=== PATIENT | male | born 2000 | race Two or more races ===

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

== ENCOUNTER 2020-01-13 09:28 | Emergency (ER) | payer BC, MEDICAID ==
[~2020-01-13] VITALS: Ht 180.3 cm; Wt 75.1 kg
[~2020-01-13 09:28] MED LIST changes: -WARF5TAB PO; +WARF5TAB2 PO
[2020-01-13 09:34] VITALS: BP 122/75
== END 2020-01-13 11:25 | disposition home or self-care (01) ==
LOC: ED 10:03
DX: Z20.2 Contact with and (suspected) exposure to infections with a predominantly sexual mode of transmission (principal)
CPT/HCPCS: 99282

== ENCOUNTER 2020-04-23 23:05 | Inpatient (IN) | payer BC, MEDICAID ==
[~2020-04-23] VITALS: Ht 177.8 cm; Wt 69.2 kg
[2020-04-23] MEDS ORDERED: MORPHINE SULFATE 4 MG/ML, 1ML ONE (23:44)
[2020-04-23] MEDS ORDERED: DIPHENHYDRAMINE 50 MG/ML, 1ML ONE (23:44)
[2020-04-23] MEDS ORDERED: OMNIPAQUE 350 MG/ML, 100ML BOTTLE ONE (23:50)
--- NOTE | 2020-04-23 23:51 | NUR ---
18 GAUGE IV STARTED LEFT FA, BLOOD DRAWN AND SENT TO LAB,PATIENT MEDICATED PER emAR.
[2020-04-24] MEDS ORDERED: DIPHENHYDRAMINE 50 MG/ML, 1ML IVPush ONE
[2020-04-24] MEDS ORDERED: MORPHINE SULFATE 4 MG/ML, 1ML IVPush ONE
--- NOTE | 2020-04-24 00:15 | NUR ---
Per mother, patient was admitted to [facility] for blood clots. He was discharged x1 week ago. Since he was d/c, patient has continued to have abd pain but today he is having trouble breathing along with CP. Patient RA sat was in the 80s; he is on 6lpm O2 via NC to maintain O2 sats. Patient was medicated by assist RN. Patient now resting on gurney with no complaints. Mother at bedside.
[2020-04-24 00:39] LABS: BASOPHILS % (AUTO) 0 % (0-1); EOSINOPHILS % (AUTO) 1 % (1-7); LYMPHOCYTES % (AUTO) 16 % (22-44); MEAN CORPUSCULAR HEMOGLOBIN 23.5 pg (27.5-34.5); MEAN CORPUSCULAR HGB CONC 31.2 g/dL (33.2-36.2); MEAN PLATELET VOLUME 10.7 fL (7.4-10.4); MONOCYTES % (AUTO) 5 % (2-9); NEUTROPHILS % (AUTO) 79 % (42-75); PLATELET COUNT 60 x10^3/uL (130-400); RED BLOOD COUNT 4.79 x10^6/uL (4.38-5.82); RED CELL DISTRIBUTION WIDTH 22.5 % (9.4-14.8)
[2020-04-24 00:51] LABS: ALANINE AMINOTRANSFERASE 30 U/L (12-78); ALBUMIN 3.7 g/dL (3.4-5.0); ANION GAP 8 mmol/L (5-15); CHLORIDE 101 mmol/L (98-107)
[2020-04-24 00:56] LABS: ALKALINE PHOSPHATASE 126 U/L (45-117); BILIRUBIN,TOTAL 0.9 mg/dL (0.2-1.0); TROPONIN I < 0.015 ng/mL (0.000-0.045)
[2020-04-24 01:08] LABS: MD MORPH REVIEW ONLY
[2020-04-24 01:09] LABS: ANISOCYTOSIS 2+; MICROCYTOSIS 1+
[2020-04-24 01:10] LABS: HYPOCHROMIA 1+; POLYCHROMASIA 1+
[2020-04-24 01:11] LABS: OVALOCYTES 1+
[2020-04-24 01:12] LABS: <PLATELET ESTIMATE> DECREASED; GIANT PLATELETS 1+; LARGE PLATELETS 1+; TEAR DROPS 1+
[2020-04-24 01:23] LABS: PROTHROMBIN TIME 55.8 Seconds (9.6-11.5)
[2020-04-24 01:24] LABS: INTERNATIONAL NORMALIZED RATIO 5.35 (0.93-1.1)
[2020-04-24] MEDS ORDERED: MORPHINE SULFATE 4 MG/ML, 1ML ONE ×3 (02:01→09:19)
--- NOTE | 2020-04-24 02:14 | NUR ---
Medicated patient per may. COVID swab collected and walked to lab.
[2020-04-24] MEDS ORDERED: FURO40TA6 PO (02:18)
[2020-04-24] MEDS ORDERED: ASCO500C2 PO (02:18)
[2020-04-24] MEDS ORDERED: SUCR1TAB PO (02:18)
[2020-04-24] MEDS ORDERED: RIOC2.5T PO (02:18)
[2020-04-24] MEDS ORDERED: CEFTRIAXONE PMX 1GM/50ML 50 ML ONE (02:28)
[2020-04-24] MEDS ORDERED: CEFTRIAXONE PMX 1GM/50ML 50 ML IVPB ONE (02:30)
[2020-04-24] MEDS ORDERED: AZITHROMYCIN 500 MG in SODIUM CHLORIDE 0.9% 250 ML IVPB ONE (02:30)
[2020-04-24] MEDS ORDERED: MORPHINE SULFATE 4 MG/ML, 1ML IVPush PRN (02:30)
[2020-04-24 02:32] LABS: MICROSCOPIC INDICATED
[2020-04-24 02:45] LABS: AMPHETAMINE SCREEN, URINE Negative (Negative); BARBITURATE SCREEN, URINE Negative (Negative); BENZODIAZEPINE SCREEN, URINE Negative (Negative); CANNABINOID SCREEN, URINE Positive (Negative); COCAINE SCREEN, URINE Negative (Negative); METHADONE SCREEN, URINE Negative (Negative); OPIATE SCREEN, URINE Positive (Negative)
--- NOTE | 2020-04-24 03:25 | NUR ---
Patient resting in gurney with no complaints or needs at this time. Respirations even and unlabored.
[2020-04-24] MEDS ORDERED: PROMETHAZINE 25 MG/ML, 1ML IM PRN (04:30)
[2020-04-24] MEDS ORDERED: MELATONIN 5 MG TABLET PO PRN (04:30)
[2020-04-24] MEDS ORDERED: BISACODYL 10 MG SUPP PR PRN (04:30)
[2020-04-24] MEDS ORDERED: POTASSIUM CHLORIDE 40 MEQ in SODIUM CHLORIDE 0.9% 500 ML IV ONE (04:30)
[2020-04-24] MEDS ORDERED: POLYETHYLENE GLYCOL 17 GM PACKET PO PRN (04:30)
[2020-04-24] MEDS ORDERED: ACETAMINOPHEN 325 MG TABLET PO PRN (04:30)
--- NOTE | 2020-04-24 05:00 | NUR ---
Provided blankets. Patient resting with no complaints or needs at this time.
--- NOTE | 2020-04-24 05:02 | NUR ---
Hospital bed requested.
[2020-04-24] MEDS ORDERED: OMEPRAZOLE 20 MG CAPSULE.DR ONE (05:24)
[2020-04-24] MEDS: OMEPRAZOLE 20 MG CAPSULE.DR PO SCH ×2 (05:45→17:05)
[2020-04-24] MEDS: SUCRALFATE 1 GM TABLET PO SCH ×4 (05:45→21:00)
[2020-04-24] MEDS: morphine SULFATE 10 MG/ML, 1ML IV PRN ×3 (05:47→21:00)
--- NOTE | 2020-04-24 05:47 | NUR ---
Patient transferred to a hospital bed. Patient states he has pain. Medicated patient per may.
--- NOTE | 2020-04-24 06:17 | NUR ---
Meal tray ordered.
--- NOTE | 2020-04-24 06:53 | NUR ---
Report to DUSTIN Bustamante. Patient care transferred.
--- NOTE | 2020-04-24 07:03 | NUR ---
pt sleeping, nad observed, call light and belongings within reach
[2020-04-24] MEDS ORDERED: FUROSEMIDE 20 MG/2 ML ONE (08:58)
[2020-04-24] MEDS ORDERED: SENNA/DOCUSATE TABLET ONE (08:58)
[2020-04-24] MEDS: SENNA/DOCUSATE TABLET PO SCH (09:06)
[2020-04-24] MEDS: FUROSEMIDE 20 MG/2 ML IV SCH ×2 (09:06→17:06)
[2020-04-24] MEDS: (Riociguat** (Adempas**) 2.5 MG) PO SCH ×3 (09:08→20:59)
--- NOTE | 2020-04-24 09:15 | NUR ---
MEAL TRAY PROVIDED. PT DENIES FURTHER NEEDS
[2020-04-24 09:28] LABS: INTERNATIONAL NORMALIZED RATIO 5.13 (0.93-1.1); PROTHROMBIN TIME 53.5 Seconds (9.6-11.5)
--- NOTE | 2020-04-24 13:26 | NUR ---
pt ate approx 75% of breakfast tray
[2020-04-24 15:06] VITALS: BP 113/77
[2020-04-24] MEDS: OXYcodone IR 5MG TABLET PO PRN ×2 (15:18→23:39)
[2020-04-24] MEDS ORDERED: CEFTRIAXONE PMX 1GM/50ML 50 ML IV ONE (15:30)
[2020-04-24 20:51] VITALS: BP 109/70
[2020-04-24] MEDS: DOXYCYCLINE 100MG TABLET PO SCH (20:59)
[2020-04-24 23:41] LABS: OCCULT BLOOD NEGATIVE (NEGATIVE)
[2020-04-25 01:20] VITALS: BP 101/60
[2020-04-25] MEDS: morphine SULFATE 10 MG/ML, 1ML IV PRN ×3 (02:33→16:25)
[2020-04-25] MEDS: OMEPRAZOLE 20 MG CAPSULE.DR PO SCH ×2 (06:15→16:24)
[2020-04-25] MEDS: OXYcodone IR 5MG TABLET PO PRN ×3 (06:15→20:29)
[2020-04-25 06:16] LABS: BASOPHILS % (AUTO) 1 % (0-1); EOSINOPHILS % (AUTO) 1 % (1-7); LYMPHOCYTES % (AUTO) 19 % (22-44); MEAN CORPUSCULAR HEMOGLOBIN 23.8 pg (27.5-34.5); MEAN CORPUSCULAR HGB CONC 31.6 g/dL (33.2-36.2); MEAN PLATELET VOLUME 9.9 fL (7.4-10.4); MONOCYTES % (AUTO) 5 % (2-9); NEUTROPHILS % (AUTO) 74 % (42-75); PLATELET COUNT 65 x10^3/uL (130-400); PROTHROMBIN TIME 41.8 Seconds (9.6-11.5); RED BLOOD COUNT 4.32 x10^6/uL (4.38-5.82); RED CELL DISTRIBUTION WIDTH 23.1 % (9.4-14.8)
[2020-04-25 06:25] LABS: ANION GAP 5 mmol/L (5-15); CALCIUM 8.8 mg/dL (8.5-10.1); CHLORIDE 107 mmol/L (98-107)
[2020-04-25 06:27] LABS: CREATININE 0.79 mg/dL (0.7-1.3)
[2020-04-25 06:44] LABS: MD SCAN
[2020-04-25 06:55] VITALS: BP 121/76
[2020-04-25] MEDS: FUROSEMIDE 20 MG/2 ML IV SCH ×2 (10:09→16:25)
[2020-04-25] MEDS: SUCRALFATE 1 GM TABLET PO SCH ×3 (10:09→20:27)
[2020-04-25] MEDS: CEFTRIAXONE PMX 2GM/50ML 50 ML IVPB SCH (10:09)
[2020-04-25] MEDS: DOXYCYCLINE 100MG TABLET PO SCH ×2 (10:09→20:28)
[2020-04-25] MEDS: SENNA/DOCUSATE TABLET PO SCH (10:10)
[2020-04-25] MEDS: (Riociguat** (Adempas**) 2.5 MG) PO SCH ×3 (10:15→20:27)
[2020-04-25 11:35] VITALS: BP 116/75
[2020-04-25] MEDS ORDERED: WARFARIN 3 MG TABLET PO-COUM ONE (18:00)
[2020-04-25 18:55] VITALS: BP 106/72
[2020-04-26] MEDS: morphine SULFATE 10 MG/ML, 1ML IV PRN ×4 (00:06→22:11)
[2020-04-26 00:47] VITALS: BP 121/77
[2020-04-26] MEDS: OMEPRAZOLE 20 MG CAPSULE.DR PO SCH ×2 (05:40→15:29)
[2020-04-26 06:06] LABS: BASOPHILS % (AUTO) 1 % (0-1); EOSINOPHILS % (AUTO) 1 % (1-7); LYMPHOCYTES % (AUTO) 21 % (22-44); MEAN CORPUSCULAR HEMOGLOBIN 23.7 pg (27.5-34.5); MEAN CORPUSCULAR HGB CONC 31.6 g/dL (33.2-36.2); MEAN PLATELET VOLUME 9.1 fL (7.4-10.4); MONOCYTES % (AUTO) 5 % (2-9); NEUTROPHILS % (AUTO) 71 % (42-75); PLATELET COUNT 68 x10^3/uL (130-400); RED BLOOD COUNT 4.38 x10^6/uL (4.38-5.82)
[2020-04-26 06:09] LABS: CHLORIDE 105 mmol/L (98-107)
[2020-04-26 06:16] LABS: ANION GAP 6 mmol/L (5-15); CALCIUM 9.1 mg/dL (8.5-10.1); CREATININE 0.89 mg/dL (0.7-1.3); INTERNATIONAL NORMALIZED RATIO 3.56 (0.93-1.1); PROTHROMBIN TIME 37.3 Seconds (9.6-11.5)
[2020-04-26 06:32] VITALS: BP 113/74
[2020-04-26 06:39] LABS: MD SCAN
[2020-04-26] MEDS: (Riociguat** (Adempas**) 2.5 MG) PO SCH ×3 (09:00→22:17)
[2020-04-26] MEDS: SUCRALFATE 1 GM TABLET PO SCH ×3 (09:44→22:10)
[2020-04-26] MEDS: DOXYCYCLINE 100MG TABLET PO SCH (09:44)
[2020-04-26] MEDS: SENNA/DOCUSATE TABLET PO SCH (09:44)
[2020-04-26] MEDS: FUROSEMIDE 20 MG/2 ML IV SCH (09:45)
[2020-04-26] MEDS: CEFTRIAXONE PMX 2GM/50ML 50 ML IVPB SCH (09:45)
[2020-04-26] MEDS: OXYcodone IR 5MG TABLET PO PRN ×2 (11:14→15:28)
[2020-04-26 11:18] VITALS: BP 117/74
[2020-04-26 13:20] LABS: O2 FLOW 4 L/min
[2020-04-26] MEDS: FUROSEMIDE 40 MG/4 ML IV SCH (17:10)
[2020-04-26] MEDS ORDERED: WARFARIN 2 MG TABLET PO-COUM ONE (18:00)
[2020-04-26] MEDS: PIPERACILLIN/TAZO/PMX 3.375GM 50 ML IV SCH (18:26)
[2020-04-26 22:43] VITALS: BP 106/65
[2020-04-27] MEDS: PIPERACILLIN/TAZO/PMX 3.375GM 50 ML IV SCH ×2 (01:38→09:04)
[2020-04-27] MEDS: OMEPRAZOLE 20 MG CAPSULE.DR PO SCH ×2 (05:34→16:26)
[2020-04-27 05:35] VITALS: BP 95/59
[2020-04-27 05:56] LABS: INTERNATIONAL NORMALIZED RATIO 3.7 (0.93-1.1); PROTHROMBIN TIME 38.6 Seconds (9.6-11.5)
[2020-04-27 05:58] LABS: ANION GAP 7 mmol/L (5-15); CALCIUM 9.1 mg/dL (8.5-10.1); CHLORIDE 103 mmol/L (98-107)
[2020-04-27 05:59] LABS: CREATININE 0.95 mg/dL (0.7-1.3)
[2020-04-27 07:41] VITALS: BP 101/62
[2020-04-27] MEDS: FUROSEMIDE 40 MG/4 ML IV SCH ×2 (08:08→16:25)
[2020-04-27] MEDS: (Riociguat** (Adempas**) 2.5 MG) PO SCH ×3 (09:00→20:30)
[2020-04-27] MEDS: SENNA/DOCUSATE TABLET PO SCH (09:04)
[2020-04-27] MEDS: SUCRALFATE 1 GM TABLET PO SCH ×3 (09:04→20:27)
[2020-04-27] MEDS ORDERED: MORPHINE SULFATE 4 MG/ML, 1ML ONE ×3 (09:15→17:56)
[2020-04-27] MEDS: morphine SULFATE 10 MG/ML, 1ML IV PRN ×4 (09:17→21:08)
[2020-04-27 12:13] VITALS: BP 103/65
[2020-04-27] MEDS: OXYcodone IR 5MG TABLET PO PRN ×2 (12:48→20:27)
[2020-04-27] MEDS ORDERED: WARFARIN 3 MG TABLET PO-COUM ONE (18:00)
[2020-04-27] MEDS ORDERED: DOXY100T PO (19:07)
[2020-04-27] MEDS ORDERED: AMOX1TAB12 PO (19:07)
[2020-04-27 19:45] VITALS: BP 99/62
[2020-04-27] MEDS: AMOXICILLIN/CLAV 875-125MG TABLET PO SCH (20:27)
[2020-04-27] MEDS: DOXYCYCLINE 100MG TABLET PO SCH (20:27)
[2020-04-28] MEDS: morphine SULFATE 10 MG/ML, 1ML IV PRN ×2 (01:56→05:48)
[2020-04-28 05:37] LABS: INTERNATIONAL NORMALIZED RATIO 3.13 (0.93-1.1); PROTHROMBIN TIME 32.7 Seconds (9.6-11.5)
[2020-04-28 05:47] LABS: CHLORIDE 102 mmol/L (98-107)
[2020-04-28] MEDS: OMEPRAZOLE 20 MG CAPSULE.DR PO SCH (05:47)
[2020-04-28 05:57] LABS: ANION GAP 7 mmol/L (5-15); CALCIUM 9.5 mg/dL (8.5-10.1); CREATININE 0.94 mg/dL (0.7-1.3)
[2020-04-28 07:18] VITALS: BP 107/67
[2020-04-28 08:54] LABS: O2 FLOW 5 L/min
[2020-04-28] MEDS: (Riociguat** (Adempas**) 2.5 MG) PO SCH (09:00)
[2020-04-28] MEDS ORDERED: FUROSEMIDE 40 MG TABLET PO SCH (09:00)
[2020-04-28] MEDS: AMOXICILLIN/CLAV 875-125MG TABLET PO SCH (09:26)
[2020-04-28] MEDS: DOXYCYCLINE 100MG TABLET PO SCH (09:26)
[2020-04-28] MEDS: SENNA/DOCUSATE TABLET PO SCH (09:26)
[2020-04-28] MEDS: SUCRALFATE 1 GM TABLET PO SCH (09:26)
[2020-04-28] MEDS: OXYcodone IR 5MG TABLET PO PRN ×2 (10:21→15:03)
[2020-04-28] MEDS ORDERED: HYDR-3245 PO (12:13)
[2020-04-28 12:53] VITALS: BP 111/68
[2020-04-28] MEDS ORDERED: WARFARIN 5 MG TABLET PO-COUM ONE (18:00)
== END 2020-04-28 18:01 | disposition home or self-care (01) | DRG 241 ==
LOC: ED 23:35 → EDIP 04-24 03:23 → 4WST 04-24 14:54 → 5SO 04-26 18:14
PROVIDERS: ADMIT Family Medicine; ATTEND Internal Medicine
DX: K29.60 Other gastritis without bleeding (principal); K59.03 Drug induced constipation; I27.29 Other secondary pulmonary hypertension; R18.8 Other ascites; J96.21 Acute and chronic respiratory failure with hypoxia; J15.9 Unspecified bacterial pneumonia; I85.00 Esophageal varices without bleeding; I50.9 Heart failure, unspecified; I27.82 Chronic pulmonary embolism; I27.81 Cor pulmonale (chronic); I26.99 Other pulmonary embolism without acute cor pulmonale; I11.0 Hypertensive heart disease with heart failure; Z20.822 Contact with and (suspected) exposure to COVID-19; I07.1 Rheumatic tricuspid insufficiency; F12.90 Cannabis use, unspecified, uncomplicated; T40.605A Adverse effect of unspecified narcotics, initial encounter; E87.5 Hyperkalemia; D69.59 Other secondary thrombocytopenia; D68.59 Other primary thrombophilia; D53.9 Nutritional anemia, unspecified; Z87.891 Personal history of nicotine dependence; Z86.718 Personal history of other venous thrombosis and embolism; Z86.2 Personal history of diseases of the blood and blood-forming organs and certain disorders involving the immune mechanism; Z79.01 Long term (current) use of anticoagulants; I25.2 Old myocardial infarction; Z91.19 Patient's noncompliance with other medical treatment and regimen; Y92.89 Other specified places as the place of occurrence of the external cause
CPT/HCPCS: 36415; 36600; 71045; 71275; 74177; 80048; 80053; 80307; 81001; 82272; 82803; 83605; 83690; 83735; 83880; 84145; 84484; 85025; 85610; 85730; 87040; 87086; 93005; 93306; 99285; G0378; J0456; J0696; J1940; J2543; J3480; Q9967; J1200; J2270; J7040; J7050; U0003

== ENCOUNTER 2020-05-28 00:13 | Inpatient (IN) | payer MEDICAID ==
[~2020-05-28] VITALS: Ht 182.9 cm; Wt 85.3 kg
[~2020-05-28 00:13] MED LIST changes: +AMOX1TAB12 PO; +ASCO500C2 PO; +DOXY100T PO; +HYDR1TAB53 PO; +SUCR1TAB PO
[2020-05-28] MEDS ORDERED: PROPOFOL 100 ML IV PRN (00:30)
[2020-05-28] MEDS ORDERED: ETOMIDATE 20 MG/10 ML IVPush ONE (00:30)
[2020-05-28] MEDS ORDERED: SUCCINYLCHOLINE 20 MG/ML, 10ML IVPush ONE (00:30)
[2020-05-28] MEDS ORDERED: SODIUM CHLORIDE 0.9% 1,000ML IVBOLUS ONE ×3 (00:30→05:30)
--- NOTE | 2020-05-28 00:46 | NUR ---
Flores RN: This is a 19 yo male bib remsa from home where pt was having resp distress. Pt was on 3LNC home O2 and SPO2 was 70 per ems. EMS placed pt on CPAP and had mid 80's SPO2. Upon arrival, RR 40's and pt appeared to be using accessory muscles and severe work of breathing, unable to answer questions. Per friend at apartment, pt is on a "lung transplant" list. Unk why. Pt was seen here in Apr for a PE and per EMS pt is on coumadin. Pt emergently intubated by JEREMIAH Christian at 0021 with an 8.0 ET tube, 24 in at the lip. Pt on cont BP, cardiac, SPO2, CO2 and temp monitors. Pt nodded agreement he would like his parents to be notified when possible. Primary RN Jose at bedside.
[2020-05-28 00:51] LABS: BASOPHILS % (AUTO) 0 % (0-1); EOSINOPHILS % (AUTO) 0 % (1-7); LYMPHOCYTES % (AUTO) 9 % (22-44); MEAN CORPUSCULAR HEMOGLOBIN 25.5 pg (27.5-34.5); MEAN CORPUSCULAR HGB CONC 31.9 g/dL (33.2-36.2); MEAN PLATELET VOLUME 9.9 fL (7.4-10.4); MONOCYTES % (AUTO) 3 % (2-9); NEUTROPHILS % (AUTO) 88 % (42-75); PLATELET COUNT 106 x10^3/uL (130-400); RED BLOOD COUNT 6.04 x10^6/uL (4.38-5.82); RED CELL DISTRIBUTION WIDTH 23.9 % (9.4-14.8)
[2020-05-28 00:56] LABS: INTERNATIONAL NORMALIZED RATIO 2.76 (0.93-1.1); PROTHROMBIN TIME 28.9 Seconds (9.6-11.5)
[2020-05-28 00:58] LABS: ALANINE AMINOTRANSFERASE 43 U/L (12-78); ANION GAP 7 mmol/L (5-15); CHLORIDE 111 mmol/L (98-107); CREATININE 1.13 mg/dL (0.7-1.3)
[2020-05-28] MEDS ORDERED: PIPERACILLIN/TAZO/PMX 3.375GM 50 ML IVPB ONE (01:00)
[2020-05-28] MEDS ORDERED: ACETAMINOPHEN 500 MG TABLET PO ONE (01:00)
[2020-05-28] MEDS ORDERED: ETOMIDATE 20 MG/10 ML IV ONE (01:00)
[2020-05-28] MEDS ORDERED: VANCOMYCIN PER PHARMACY MC ONE (01:00)
[2020-05-28] MEDS ORDERED: MIDAZOLAM 1 MG/ML, 5ML IVPush ONE (01:00)
[2020-05-28] MEDS ORDERED: ONDANSETRON 2MG/ML, 2ML IVPush ONE (01:00)
--- NOTE | 2020-05-28 01:00 | NUR ---
MULTIPLE MEDICATIONS GIVEN TO SEDATE AND KEEP PT IMMOBILE. SEE EMAR NOTE. RSI meds used. pt is extremely combative post intubation and orders received for restraints for pt safety. 16fr OG tube placed and pt tolerated well, and placed on suction contiuous. brown bilious secretions out. pt had emesis x2 with partial undigested food and pt cleaned up. Soto catheter placed x1 attempt with thermometer. 16fr. clear yellow urine came out.
[2020-05-28 01:03] LABS: ALKALINE PHOSPHATASE 106 U/L (45-117); BILIRUBIN,TOTAL 0.8 mg/dL (0.2-1.0); TOTAL PROTEIN 7.9 g/dL (6.4-8.2); TROPONIN I < 0.015 ng/mL (0.000-0.045)
[2020-05-28] MEDS: MIDAZOLAM HCL 50 MG in SODIUM CHLORIDE 0.9% 40 ML IV PRN ×2 (01:07→04:47)
[2020-05-28 01:10] LABS: MD NO
--- NOTE | 2020-05-28 01:25 | NUR ---
sedation increased as pt is trying to sit up in bed. propofol to 50mcg/kg/min and versed gtt to 5mg/hr. Per MD verbal and read back order, pt given another 100mg of succinylcholine. pt sedated and paralyzed.
[2020-05-28] MEDS ORDERED: ACETAMINOPHEN 650 MG SUPP ONE (01:26)
[2020-05-28] MEDS ORDERED: ACETAMINOPHEN 650 MG SUPP PR ONE (01:30)
[2020-05-28] MEDS ORDERED: VANCOMYCIN 2,000 MG in SODIUM CHLORIDE 0.9% 500 ML IV ONE (01:30)
--- NOTE | 2020-05-28 01:44 | NUR ---
at this time, pt is resting but still breathing over the ventilator. strong respirations, and o2 sats 95%, and remains febrile. tylenol ME given.
--- NOTE | 2020-05-28 01:58 | NUR ---
SANYA RN: CALLED MOTHER AND LEFT MESSAGE TO RETURN CALL. NO DETAILS GIVEN.
--- NOTE | 2020-05-28 02:07 | NUR ---
pt swabbed for rapid covid, and urine collected and sent to lab. pt moves when the covid nasal swab was done, but remains comfortable and immobile with sedation. on cr monitor, and extremities with restraints checked, and restraints allowing two fingers to slip inside restraint, able to move hands and feet, cap. refill time less than 2 sec., and pt sedated and intubated, and no need for PO intake. Soto in place for any urinary elimination needs
--- NOTE | 2020-05-28 02:12 | NUR ---
pts mouth and ETT suctioned. clear secretions from mouth. and blood tinged secretions from ETT suctioned out to clear. breath sounds bilateral, and strong, with ventilator. pt over breathing the vent at this time.
--- NOTE | 2020-05-28 02:12 | NUR ---
pt remains well sedated at this time, on cr monitor, and RN at bedside.
--- NOTE | 2020-05-28 02:22 | NUR ---
lab to bedside to draw vbg. RT called to bedside to help prep pt for CT.
[2020-05-28] MEDS ORDERED: FENTANYL PF 1,000 MCG in SODIUM CHLORIDE 0.9% 80 ML IV PRN (02:30)
[2020-05-28] MEDS ORDERED: DEXTROSE 4 GM TAB.CHEW PO PRN (02:30)
[2020-05-28] MEDS ORDERED: GLUCAGON 1 MG IM PRN (02:30)
[2020-05-28] MEDS ORDERED: DEXTROSE 50%, 50ML SYRINGE IVPush PRN (02:30)
[2020-05-28] MEDS ORDERED: LIDOCAINE-MPF 1%, 2ML ENDO PRN (02:30)
[2020-05-28] MEDS ORDERED: PHARMACY MAY ADJ FOR RENAL FX MC SCH (02:30)
[2020-05-28 02:45] LABS: MICROSCOPIC INDICATED
[2020-05-28] MEDS ORDERED: OMNIPAQUE 350 MG/ML, 100ML BOTTLE ONE (02:56)
--- NOTE | 2020-05-28 02:57 | NUR ---
pt taken to CT scan, without incident, RT, RN and tech with pt. remained on cr monitor and tolerated well. pt awakens, but follows commands to remain calm and not to try and sit up. pt still tries to reach up and pull on ETT. 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
[2020-05-28] MEDS: SODIUM CHLORIDE FLUSH 10ML SYR IVF SCH ×2 (03:02→19:29)
[2020-05-28] MEDS ORDERED: ONDANSETRON 2MG/ML, 2ML ONE (03:06)
--- NOTE | 2020-05-28 03:10 | NUR ---
pt resting at this time, on ventilator, cr monitor, and no change in status, but remains stable.
[2020-05-28] MEDS: ONDANSETRON 2MG/ML, 2ML IV PRN (03:45)
--- NOTE | 2020-05-28 03:46 | NUR ---
report and care to CCU RN, and pt care transferred without incident. pt remains sedated on ventilator. does react to painful stimuli.
[2020-05-28 03:49] VITALS: BP 110/56
[2020-05-28] MEDS: PROPOFOL 100 ML IV PRN ×3 (04:01→16:17)
[2020-05-28] MEDS ORDERED: VANCOMYCIN PER PHARMACY MC PRN (07:00)
[2020-05-28] MEDS ORDERED: PHARMACOKINETIC CONSULTATION MC ONE (07:00)
[2020-05-28] MEDS ORDERED: PHARMACOKINETIC MONITORING MC PRN (07:00)
[2020-05-28] MEDS: PIPERACILLIN/TAZO/PMX 4.5GM 100 ML IV SCH ×3 (07:58→19:29)
[2020-05-28] MEDS: MICAFUNGIN 100 MG in SODIUM CHLORIDE 0.9% 100 ML IV SCH (09:09)
[2020-05-28] MEDS: FAMOTIDINE 20 MG/2 ML IVPush SCH ×2 (09:11→19:29)
--- NOTE | 2020-05-28 13:13 | NUR ---
TF per RD recs: PROMOTE @80mL/hr (w/ propofol); @90mL/hr (OFF propofol) Addendum: 05/28/20 at [address] Amended: Links added.
[2020-05-28] MEDS: VANCOMYCIN 1,400 MG in SODIUM CHLORIDE 0.9% 250 ML IV SCH (13:22)
[2020-05-28] MEDS ORDERED: WARFARIN 7.5 MG TABLET PO-COUM ONE (18:00)
[2020-05-29] MEDS: PIPERACILLIN/TAZO/PMX 4.5GM 100 ML IV SCH ×4 (01:22→20:12)
[2020-05-29] MEDS: PROPOFOL 100 ML IV PRN ×2 (01:53→22:27)
[2020-05-29] MEDS: VANCOMYCIN 1,400 MG in SODIUM CHLORIDE 0.9% 250 ML IV SCH ×2 (01:57→14:54)
[2020-05-29 04:45] LABS: BASOPHILS % (AUTO) 1 % (0-1); EOSINOPHILS % (AUTO) 1 % (1-7); LYMPHOCYTES % (AUTO) 27 % (22-44); MEAN CORPUSCULAR HEMOGLOBIN 25.6 pg (27.5-34.5); MEAN CORPUSCULAR HGB CONC 31.7 g/dL (33.2-36.2); MEAN PLATELET VOLUME 9.3 fL (7.4-10.4); MONOCYTES % (AUTO) 5 % (2-9); NEUTROPHILS % (AUTO) 66 % (42-75); PLATELET COUNT 71 x10^3/uL (130-400); RED BLOOD COUNT 5.04 x10^6/uL (4.38-5.82); RED CELL DISTRIBUTION WIDTH 24.4 % (9.4-14.8)
[2020-05-29 04:57] LABS: ANION GAP 5 mmol/L (5-15); CALCIUM 8.4 mg/dL (8.5-10.1); CHLORIDE 116 mmol/L (98-107)
[2020-05-29 04:59] LABS: CREATININE 1.05 mg/dL (0.7-1.3)
[2020-05-29 05:48] LABS: MD SCAN
[2020-05-29] MEDS: SODIUM CHLORIDE FLUSH 10ML SYR IVF SCH ×2 (09:39→20:12)
[2020-05-29 09:41] LABS: INTERNATIONAL NORMALIZED RATIO 2.89 (0.93-1.1); PROTHROMBIN TIME 30.3 Seconds (9.6-11.5)
[2020-05-29] MEDS: MICAFUNGIN 100 MG in SODIUM CHLORIDE 0.9% 100 ML IV SCH (09:41)
[2020-05-29] MEDS: FAMOTIDINE 20 MG/2 ML IVPush SCH ×2 (09:41→20:12)
[2020-05-29] MEDS ORDERED: ETOMIDATE 20 MG/10 ML ONE (11:45)
[2020-05-29] MEDS ORDERED: MIDAZOLAM 1 MG/ML, 5ML ONE (11:45)
[2020-05-29] MEDS ORDERED: PROPOFOL 10 MG/ML, 100ML IV ONE (11:45)
[2020-05-29] MEDS ORDERED: ACETAMINOPHEN 325 MG TABLET ONE (15:33)
[2020-05-29] MEDS: ACETAMINOPHEN 325 MG TABLET PO PRN (15:38)
[2020-05-29] MEDS ORDERED: PHARMACY MAY ADJ FOR RENAL FX MC SCH (17:30)
[2020-05-29] MEDS ORDERED: WARFARIN 7.5 MG TABLET PO-COUM ONE (18:00)
[2020-05-30] MEDS: PIPERACILLIN/TAZO/PMX 4.5GM 100 ML IV SCH ×4 (02:00→19:59)
[2020-05-30] MEDS: VANCOMYCIN 1,400 MG in SODIUM CHLORIDE 0.9% 250 ML IV SCH ×2 (02:37→13:10)
[2020-05-30] MEDS: PROPOFOL 100 ML IV PRN ×4 (04:04→23:08)
[2020-05-30 04:49] LABS: ANION GAP 12 mmol/L (5-15); CALCIUM 8.4 mg/dL (8.5-10.1); CHLORIDE 113 mmol/L (98-107); CREATININE 1.15 mg/dL (0.7-1.3)
[2020-05-30 04:51] LABS: BASOPHILS % (AUTO) 1 % (0-1); EOSINOPHILS % (AUTO) 0 % (1-7); LYMPHOCYTES % (AUTO) 22 % (22-44); MEAN CORPUSCULAR HEMOGLOBIN 25.9 pg (27.5-34.5); MEAN CORPUSCULAR HGB CONC 32.2 g/dL (33.2-36.2); MONOCYTES % (AUTO) 4 % (2-9); NEUTROPHILS % (AUTO) 73 % (42-75); PLATELET COUNT 80 x10^3/uL (130-400); RED BLOOD COUNT 4.92 x10^6/uL (4.38-5.82); RED CELL DISTRIBUTION WIDTH 24.2 % (9.4-14.8)
[2020-05-30 06:23] LABS: MD MORPH REVIEW ONLY
[2020-05-30 06:25] LABS: ANISOCYTOSIS 1+; MICROCYTOSIS 1+; OVALOCYTES 2+
[2020-05-30 06:26] LABS: <PLATELET ESTIMATE> DECREASED; ECHINOCYTES 1+
[2020-05-30 06:27] LABS: <PLT MORPHOLOGY> NORMAL PLT MORPH
[2020-05-30] MEDS: FAMOTIDINE 20 MG/2 ML IVPush SCH ×2 (08:35→21:08)
[2020-05-30] MEDS: SODIUM CHLORIDE FLUSH 10ML SYR IVF SCH ×2 (08:35→21:09)
[2020-05-30 09:07] LABS: INTERNATIONAL NORMALIZED RATIO 4.82 (0.93-1.1)
[2020-05-30] MEDS: MICAFUNGIN 100 MG in SODIUM CHLORIDE 0.9% 100 ML IV SCH (09:58)
[2020-05-30] MEDS ORDERED: WARFARIN 3 MG TABLET PO-COUM ONE (18:00)
[2020-05-30] MEDS: ACETAMINOPHEN 325 MG TABLET PO PRN (21:08)
[2020-05-31] MEDS: PIPERACILLIN/TAZO/PMX 4.5GM 100 ML IV SCH ×4 (01:33→19:00)
[2020-05-31] MEDS: VANCOMYCIN 1,400 MG in SODIUM CHLORIDE 0.9% 250 ML IV SCH (02:32)
[2020-05-31 04:37] LABS: ANION GAP 11 mmol/L (5-15); CALCIUM 8.4 mg/dL (8.5-10.1); CHLORIDE 110 mmol/L (98-107); CREATININE 1.25 mg/dL (0.7-1.3); TRIGLYCERIDES 175 mg/dL (50-200)
[2020-05-31] MEDS: PROPOFOL 100 ML IV PRN ×3 (04:40→17:50)
[2020-05-31 04:43] LABS: BASOPHILS % (AUTO) 1 % (0-1); EOSINOPHILS % (AUTO) 0 % (1-7); LYMPHOCYTES % (AUTO) 19 % (22-44); MEAN CORPUSCULAR HEMOGLOBIN 25.9 pg (27.5-34.5); MEAN CORPUSCULAR HGB CONC 32.1 g/dL (33.2-36.2); MONOCYTES % (AUTO) 6 % (2-9); NEUTROPHILS % (AUTO) 74 % (42-75); PLATELET COUNT 68 x10^3/uL (130-400); RED BLOOD COUNT 4.96 x10^6/uL (4.38-5.82); RED CELL DISTRIBUTION WIDTH 24.7 % (9.4-14.8)
[2020-05-31 04:52] LABS: INTERNATIONAL NORMALIZED RATIO > 8.00 (0.93-1.1); PROTHROMBIN TIME > 84.0 Seconds (9.6-11.5)
[2020-05-31 05:08] LABS: MD SCAN
[2020-05-31] MEDS ORDERED: FUROSEMIDE 40 MG/4 ML IV ONE (08:30)
[2020-05-31] MEDS: FAMOTIDINE 20 MG/2 ML IVPush SCH ×2 (08:57→21:07)
[2020-05-31] MEDS: MICAFUNGIN 100 MG in SODIUM CHLORIDE 0.9% 100 ML IV SCH (08:58)
[2020-05-31] MEDS: SODIUM CHLORIDE FLUSH 10ML SYR IVF SCH (08:59)
[2020-05-31] MEDS ORDERED: HOLD COUMADIN MC PRN (14:30)
[2020-05-31] MEDS: ACETAMINOPHEN 325 MG TABLET PO PRN ×2 (17:26→22:07)
[2020-06-01] MEDS: FENTANYL PF 100 MCG/2ML IVPush PRN ×3 (00:52→19:46)
[2020-06-01] MEDS: PIPERACILLIN/TAZO/PMX 4.5GM 100 ML IV SCH ×4 (01:17→19:45)
[2020-06-01] MEDS: PROPOFOL 100 ML IV PRN ×2 (01:52→13:02)
[2020-06-01 04:40] LABS: BASOPHILS % (AUTO) 1 % (0-1); EOSINOPHILS % (AUTO) 1 % (1-7); LYMPHOCYTES % (AUTO) 26 % (22-44); MEAN CORPUSCULAR HEMOGLOBIN 26.4 pg (27.5-34.5); MEAN CORPUSCULAR HGB CONC 32.6 g/dL (33.2-36.2); MEAN PLATELET VOLUME 9.3 fL (7.4-10.4); MONOCYTES % (AUTO) 8 % (2-9); NEUTROPHILS % (AUTO) 64 % (42-75); RED BLOOD COUNT 4.61 x10^6/uL (4.38-5.82); RED CELL DISTRIBUTION WIDTH 24.7 % (9.4-14.8)
[2020-06-01 04:50] LABS: ANION GAP 7 mmol/L (5-15); CALCIUM 8.3 mg/dL (8.5-10.1); CHLORIDE 111 mmol/L (98-107); CREATININE 1.13 mg/dL (0.7-1.3); TRIGLYCERIDES 179 mg/dL (50-200)
[2020-06-01] MEDS: DEXMEDETOMIDINE 400 MCG in SODIUM CHLORIDE 0.9% 96 ML IV PRN ×2 (04:50→10:43)
[2020-06-01 05:05] LABS: INTERNATIONAL NORMALIZED RATIO > 8.00 (0.93-1.1); PROTHROMBIN TIME > 84.0 Seconds (9.6-11.5)
[2020-06-01 05:46] LABS: MD SCAN; PLATELET COUNT 60 x10^3/uL (130-400)
[2020-06-01] MEDS: FAMOTIDINE 20 MG/2 ML IVPush SCH ×2 (09:46→19:46)
[2020-06-01] MEDS: ACETAMINOPHEN 325 MG TABLET PO PRN (10:28)
[2020-06-01] MEDS ORDERED: GLYCOPYRROLATE IV PRN (10:30)
[2020-06-01] MEDS ORDERED: SODIUM CHLORIDE 0.9%, 500ML IVBOLUS ONE (10:30)
[2020-06-01] MEDS ORDERED: VANCOMYCIN PER PHARMACY MC PRN (11:00)
[2020-06-01] MEDS: ONDANSETRON 2MG/ML, 2ML IV PRN (11:09)
[2020-06-01] MEDS ORDERED: PHARMACOKINETIC CONSULTATION MC ONE (11:30)
[2020-06-01] MEDS ORDERED: PHARMACOKINETIC MONITORING MC PRN (11:30)
[2020-06-01] MEDS ORDERED: VANCOMYCIN 1,900 MG in SODIUM CHLORIDE 0.9% 250 ML IV ONE ×2 (11:30→12:00)
--- NOTE | 2020-06-01 13:55 | NUR ---
TF per RD (updated 06/01): Promote @75mL/hr (w/ propofol); @85mL/hr (OFF propofol) Addendum: 06/01/20 at [address] Amended: Links added.
[2020-06-01] MEDS ORDERED: NOREPINEPHRINE 8 MG in SODIUM CHLORIDE 0.9% 242 ML IV PRN (14:30)
[2020-06-01] MEDS ORDERED: LACTATED RINGERS 1,000 ML IVBOLUS ONE (14:30)
[2020-06-01] MEDS ORDERED: LACTATED RINGERS 500 ML IVBOLUS PRN (17:30)
[2020-06-01] MEDS ORDERED: [UNRECOGNIZED DRUG - REMARK] MC ONE (18:00)
[2020-06-01] MEDS: VANCOMYCIN 1,400 MG in SODIUM CHLORIDE 0.9% 250 ML IV SCH (23:41)
[2020-06-02] MEDS: PIPERACILLIN/TAZO/PMX 4.5GM 100 ML IV SCH ×4 (02:06→19:45)
[2020-06-02] MEDS: PROPOFOL 100 ML IV PRN ×3 (02:14→22:07)
[2020-06-02] MEDS: FENTANYL PF 100 MCG/2ML IVPush PRN ×6 (03:58→22:07)
[2020-06-02 06:17] LABS: ANION GAP 6 mmol/L (5-15); CALCIUM 8.1 mg/dL (8.5-10.1); CHLORIDE 111 mmol/L (98-107); CREATININE 1.42 mg/dL (0.7-1.3)
[2020-06-02 06:33] LABS: MEAN CORPUSCULAR HGB CONC 32.1 g/dL (33.2-36.2); RED BLOOD COUNT 4.46 x10^6/uL (4.38-5.82); RED CELL DISTRIBUTION WIDTH 25.2 % (9.4-14.8)
[2020-06-02 06:53] LABS: PLATELET COUNT 45 x10^3/uL (130-400)
[2020-06-02 06:55] LABS: MD YES
[2020-06-02 06:57] LABS: BAND#(MANUAL) 0.37 x10^3/uL; BANDS%(MANUAL) 4 % (0-7); BASOS#(MANUAL) 0.19 x10^3/uL (0-0.3); BASOS% (MANUAL) 2 % (0-1); EOS#(MANUAL) 0.09 x10^3/uL (0.0-0.8); EOS% (MANUAL) 1 % (1-7); LYMPH#(MANUAL) 2.23 x10^3/uL (1-6.1); LYMPHS% (MANUAL) 24 % (22-44); MONOS#(MANUAL) 0.47 x10^3/uL (0.3-2.7); MONOS% (MANUAL) 5 % (2-9); REACTIVE LYMPHS # (MANUAL) 0.09 x10^3/uL (0-0); REACTIVE LYMPHS % (MANUAL) 1 % (0-0); SEG#(MANUAL) 5.86 x10^3/uL (1.8-8); SEGS% (MANUAL) 63 % (42-75)
[2020-06-02 06:58] LABS: ANISOCYTOSIS 1+; OVALOCYTES 2+; POLYCHROMASIA 1+
[2020-06-02 06:59] LABS: <PLATELET ESTIMATE> DECREASED; <PLT MORPHOLOGY> NORMAL PLT MORPH; HYPOCHROMIA 1+; MICROCYTOSIS 1+
[2020-06-02 07:44] LABS: INTERNATIONAL NORMALIZED RATIO 4.74 (0.93-1.1); PROTHROMBIN TIME 49.2 Seconds (9.6-11.5)
[2020-06-02] MEDS: FAMOTIDINE 20 MG/2 ML IVPush SCH ×2 (07:46→20:28)
[2020-06-02] MEDS: POTASSIUM CHLORIDE 10% 20 MEQ/15 ML UDC PO SCH ×2 (09:51→20:28)
[2020-06-02] MEDS: VANCOMYCIN 1,400 MG in SODIUM CHLORIDE 0.9% 250 ML IV SCH (11:10)
[2020-06-02] MEDS ORDERED: WARFARIN 5 MG TABLET PO-COUM ONE (18:00)
[2020-06-02] MEDS: FUROSEMIDE 100 MG in SODIUM CHLORIDE 0.9% 90 ML IV PRN (22:07)
[2020-06-03] MEDS: FENTANYL PF 100 MCG/2ML IVPush PRN ×4 (00:09→18:42)
[2020-06-03] MEDS: PIPERACILLIN/TAZO/PMX 4.5GM 100 ML IV SCH (01:34)
[2020-06-03] MEDS: PROPOFOL 100 ML IV PRN ×3 (03:48→21:13)
[2020-06-03 05:01] LABS: MEAN CORPUSCULAR HEMOGLOBIN 26.2 pg (27.5-34.5); MEAN CORPUSCULAR HGB CONC 31.8 g/dL (33.2-36.2); MEAN PLATELET VOLUME 10.1 fL (7.4-10.4); RED BLOOD COUNT 4.45 x10^6/uL (4.38-5.82); RED CELL DISTRIBUTION WIDTH 24.9 % (9.4-14.8)
[2020-06-03 05:12] LABS: INTERNATIONAL NORMALIZED RATIO 4.79 (0.93-1.1); PROTHROMBIN TIME 49.7 Seconds (9.6-11.5)
[2020-06-03 05:14] LABS: ANION GAP 8 mmol/L (5-15); CHLORIDE 111 mmol/L (98-107); CREATININE 1.26 mg/dL (0.7-1.3)
[2020-06-03 05:16] LABS: VANCOMYCIN,RANDOM 14.8 mcg/mL
[2020-06-03 06:08] LABS: MD YES
[2020-06-03 06:09] LABS: PLATELET COUNT 23 x10^3/uL (130-400)
[2020-06-03 06:10] LABS: BAND#(MANUAL) 0.23 x10^3/uL; BANDS%(MANUAL) 3 % (0-7); LYMPHS% (MANUAL) 29 % (22-44); MONOS#(MANUAL) 0.15 x10^3/uL (0.3-2.7); MONOS% (MANUAL) 2 % (2-9); SEG#(MANUAL) 5.02 x10^3/uL (1.8-8); SEGS% (MANUAL) 66 % (42-75)
[2020-06-03 06:11] LABS: <PLATELET ESTIMATE> DECREASED; ANISOCYTOSIS 1+; HYPOCHROMIA 1+; LARGE PLATELETS 1+; MICROCYTOSIS 1+; OVALOCYTES 1+; POLYCHROMASIA 1+
[2020-06-03] MEDS: MEROPENEM 1 GM in SODIUM CHLORIDE 0.9% 100 ML IV SCH ×3 (07:11→22:38)
[2020-06-03] MEDS: FAMOTIDINE 20 MG/2 ML IVPush SCH ×2 (08:09→21:13)
[2020-06-03] MEDS: POTASSIUM CHLORIDE 10% 20 MEQ/15 ML UDC PO SCH ×2 (08:09→21:13)
[2020-06-03] MEDS: FUROSEMIDE 100 MG in SODIUM CHLORIDE 0.9% 90 ML IV PRN ×2 (08:11→15:30)
[2020-06-03] MEDS: IMMUN GLOB IV SCH (09:46)
[2020-06-03] MEDS: ACETAMINOPHEN 325 MG TABLET PO PRN (17:16)
[2020-06-03] MEDS ORDERED: WARFARIN 3 MG TABLET PO-COUM ONE (18:00)
[2020-06-04] MEDS: PROPOFOL 100 ML IV PRN ×5 (02:38→22:08)
[2020-06-04] MEDS: ACETAMINOPHEN 325 MG TABLET PO PRN (03:29)
[2020-06-04] MEDS: FENTANYL PF 100 MCG/2ML IVPush PRN (03:29)
[2020-06-04 04:42] LABS: MEAN CORPUSCULAR HEMOGLOBIN 26.2 pg (27.5-34.5); MEAN CORPUSCULAR HGB CONC 31.2 g/dL (33.2-36.2); MEAN PLATELET VOLUME 11.4 fL (7.4-10.4); RED BLOOD COUNT 4.58 x10^6/uL (4.38-5.82); RED CELL DISTRIBUTION WIDTH 25.2 % (9.4-14.8)
[2020-06-04 04:46] LABS: PLATELET COUNT 49 x10^3/uL (130-400)
[2020-06-04 04:53] LABS: ANION GAP 7 mmol/L (5-15); CALCIUM 8.2 mg/dL (8.5-10.1); CHLORIDE 109 mmol/L (98-107); CREATININE 1.72 mg/dL (0.7-1.3); TRIGLYCERIDES 188 mg/dL (50-200)
[2020-06-04 04:58] LABS: INTERNATIONAL NORMALIZED RATIO 5.47 (0.93-1.1); PROTHROMBIN TIME 56.6 Seconds (9.6-11.5)
[2020-06-04 05:27] LABS: MD YES
[2020-06-04 05:30] LABS: BAND#(MANUAL) 0.23 x10^3/uL; BANDS%(MANUAL) 2 % (0-7); BASOS#(MANUAL) 0.12 x10^3/uL (0-0.3); BASOS% (MANUAL) 1 % (0-1); LYMPH#(MANUAL) 2.57 x10^3/uL (1-6.1); LYMPHS% (MANUAL) 22 % (22-44); MONOS#(MANUAL) 0.12 x10^3/uL (0.3-2.7); MONOS% (MANUAL) 1 % (2-9); SEG#(MANUAL) 8.66 x10^3/uL (1.8-8); SEGS% (MANUAL) 74 % (42-75)
[2020-06-04 05:31] LABS: <PLATELET ESTIMATE> DECREASED; ANISOCYTOSIS 1+; HYPOCHROMIA 1+; LARGE PLATELETS 1+; OVALOCYTES 1+; POLYCHROMASIA 1+
[2020-06-04] MEDS: MEROPENEM 1 GM in SODIUM CHLORIDE 0.9% 100 ML IV SCH ×3 (06:07→21:31)
[2020-06-04] MEDS: FAMOTIDINE 20 MG/2 ML IVPush SCH ×2 (07:37→21:29)
[2020-06-04] MEDS ORDERED: SODIUM CHLORIDE 0.9% 1,000 ML IV SCH ×2 (08:00)
[2020-06-04] MEDS ORDERED: SODIUM CHLORIDE 0.9% 1,000 ML IV ONE (08:00)
[2020-06-04] MEDS ORDERED: BISACODYL 10 MG SUPP PR PRN (09:00)
[2020-06-04] MEDS ORDERED: LACTULOSE 20 GM/30 ML UDC PO PRN (09:00)
[2020-06-04] MEDS: IMMUN GLOB IV SCH (09:28)
[2020-06-04] MEDS: DOCUSATE 50 MG/5 ML, 10ML UDC PO SCH (09:59)
[2020-06-04] MEDS: POLYETHYLENE GLYCOL 17 GM PACKET PO PRN (10:00)
[2020-06-04] MEDS ORDERED: WARFARIN 1 MG TABLET PO-COUM ONE (18:00)
[2020-06-04] MEDS: SENNA 176 MG/5 ML ORAL SOL NG SCH (21:30)
[2020-06-05 04:51] LABS: MEAN CORPUSCULAR HEMOGLOBIN 27.6 pg (27.5-34.5); MEAN CORPUSCULAR HGB CONC 32.8 g/dL (33.2-36.2); MEAN PLATELET VOLUME 10.1 fL (7.4-10.4); RED CELL DISTRIBUTION WIDTH 25.8 % (9.4-14.8)
[2020-06-05 04:56] LABS: ANION GAP 4 mmol/L (5-15); CHLORIDE 105 mmol/L (98-107); CREATININE 1.08 mg/dL (0.7-1.3)
[2020-06-05 05:10] LABS: INTERNATIONAL NORMALIZED RATIO 4.5 (0.93-1.1); PROTHROMBIN TIME 46.8 Seconds (9.6-11.5)
[2020-06-05] MEDS: MEROPENEM 1 GM in SODIUM CHLORIDE 0.9% 100 ML IV SCH ×3 (05:36→22:14)
[2020-06-05 05:59] LABS: MD YES; PLATELET COUNT 93 x10^3/uL (130-400)
[2020-06-05 06:03] LABS: ANISOCYTOSIS 1+; BAND#(MANUAL) 0.38 x10^3/uL; BANDS%(MANUAL) 5 % (0-7); EOS#(MANUAL) 0.08 x10^3/uL (0.0-0.8); EOS% (MANUAL) 1 % (1-7); HYPOCHROMIA 1+; LYMPH#(MANUAL) 2.81 x10^3/uL (1-6.1); LYMPHS% (MANUAL) 37 % (22-44); METAMYELOCYTES# (MANUAL) 0.08 x10^3/uL (0-0); METAMYELOCYTES% (MANUAL) 1 % (0-1); MONOS#(MANUAL) 0.08 x10^3/uL (0.3-2.7); MONOS% (MANUAL) 1 % (2-9); OVALOCYTES 1+; POLYCHROMASIA 1+; SEG#(MANUAL) 4.18 x10^3/uL (1.8-8); SEGS% (MANUAL) 55 % (42-75)
[2020-06-05 06:05] LABS: <PLATELET ESTIMATE> DECREASED; LARGE PLATELETS 1+
[2020-06-05] MEDS: DOCUSATE 50 MG/5 ML, 10ML UDC PO SCH (08:03)
[2020-06-05] MEDS: POLYETHYLENE GLYCOL 17 GM PACKET PO PRN (08:03)
[2020-06-05] MEDS: PROPOFOL 100 ML IV PRN ×4 (08:04→22:04)
[2020-06-05] MEDS: FAMOTIDINE 20 MG/2 ML IVPush SCH ×2 (08:04→22:04)
[2020-06-05] MEDS: FENTANYL PF 100 MCG/2ML IVPush PRN (09:30)
[2020-06-05] MEDS ORDERED: FUROSEMIDE 40 MG/4 ML IV ONE (10:00)
[2020-06-05] MEDS ORDERED: WARFARIN 2.5 MG TABLET PO-COUM ONE (18:00)
[2020-06-05] MEDS: SENNA 176 MG/5 ML ORAL SOL NG SCH (22:08)
[2020-06-06] MEDS: FENTANYL PF 100 MCG/2ML IVPush PRN ×2 (01:23→05:32)
[2020-06-06] MEDS: PROPOFOL 100 ML IV PRN ×2 (02:36→06:15)
[2020-06-06 04:41] LABS: MEAN CORPUSCULAR HEMOGLOBIN 27.6 pg (27.5-34.5); MEAN CORPUSCULAR HGB CONC 32.8 g/dL (33.2-36.2); MEAN PLATELET VOLUME 10.3 fL (7.4-10.4); PLATELET COUNT 126 x10^3/uL (130-400); RED BLOOD COUNT 4.42 x10^6/uL (4.38-5.82)
[2020-06-06 04:43] LABS: INTERNATIONAL NORMALIZED RATIO 3.3 (0.93-1.1); MD YES; PROTHROMBIN TIME 34.5 Seconds (9.6-11.5)
[2020-06-06 05:13] LABS: ANION GAP 9 mmol/L (5-15); CALCIUM 8.6 mg/dL (8.5-10.1); CHLORIDE 109 mmol/L (98-107); CREATININE 1.15 mg/dL (0.7-1.3)
[2020-06-06 05:48] LABS: ANISOCYTOSIS 1+; BAND#(MANUAL) 0.93 x10^3/uL; BANDS%(MANUAL) 9 % (0-7); LYMPH#(MANUAL) 2.06 x10^3/uL (1-6.1); LYMPHS% (MANUAL) 20 % (22-44); MONOS#(MANUAL) 0.41 x10^3/uL (0.3-2.7); MONOS% (MANUAL) 4 % (2-9); POLYCHROMASIA 1+; SEGS% (MANUAL) 67 % (42-75)
[2020-06-06 05:49] LABS: <PLATELET ESTIMATE> DECREASED; <PLT MORPHOLOGY> NORMAL PLT MORPH
[2020-06-06] MEDS ORDERED: VECURONIUM 10 MG ONE (05:58)
[2020-06-06] MEDS ORDERED: FENTANYL PF 1,000 MCG in SODIUM CHLORIDE 0.9% 80 ML IV PRN (06:00)
[2020-06-06] MEDS ORDERED: VECURONIUM 10 MG IVPush ONE ×2 (06:00→08:00)
[2020-06-06] MEDS: MEROPENEM 1 GM in SODIUM CHLORIDE 0.9% 100 ML IV SCH ×2 (06:23→15:07)
[2020-06-06] MEDS ORDERED: VECURONIUM 50 MG in SODIUM CHLORIDE 0.9% 50 ML IV PRN (07:30)
[2020-06-06] MEDS ORDERED: MIDAZOLAM HCL 50 MG in SODIUM CHLORIDE 0.9% 40 ML IV PRN (08:30)
[2020-06-06] MEDS ORDERED: VASOPRESSIN 20 UNIT in SODIUM CHLORIDE 0.9% 99 ML IV PRN (09:00)
[2020-06-06] MEDS ORDERED: EPINEPHRINE 10 MG in SODIUM CHLORIDE 0.9% 240 ML IV PRN (09:00)
[2020-06-06] MEDS ORDERED: NOREPINEPHRINE 1 MG/ML, 4ML ONE (09:25)
[2020-06-06] MEDS: ARTIFICIAL TEARS OINT 3.5 GM EACHEYE SCH ×2 (09:27→14:44)
[2020-06-06] MEDS: FAMOTIDINE 20 MG/2 ML IVPush SCH (09:27)
[2020-06-06] MEDS: DOCUSATE 50 MG/5 ML, 10ML UDC PO SCH (09:27)
[2020-06-06] MEDS ORDERED: NOREPINEPHRINE 8 MG in SODIUM CHLORIDE 0.9% 242 ML IV PRN (10:00)
[2020-06-06 10:08] LABS: ANION GAP 13 mmol/L (5-15); CALCIUM 8.1 mg/dL (8.5-10.1); CHLORIDE 106 mmol/L (98-107); CREATININE 2.11 mg/dL (0.7-1.3)
[2020-06-06] MEDS ORDERED: DEXTROSE 50%, 50ML SYRINGE IVPush ONE ×2 (10:30→11:30)
[2020-06-06] MEDS ORDERED: D5%-0.45% NACL 1,000 ML IV SCH (10:30)
[2020-06-06] MEDS ORDERED: NOREPINEPHRINE 32 MG in SODIUM CHLORIDE 0.9% 218 ML IV PRN (10:30)
[2020-06-06] MEDS ORDERED: INSULIN REGULAR 100 UNITS/ML, 3ML VIAL IVPush ONE (11:00)
[2020-06-06 12:16] LABS: ALBUMIN 2.8 g/dL (3.4-5.0)
[2020-06-06 12:24] LABS: BILIRUBIN, DIRECT 1.1 mg/dL (0.1-0.2); BILIRUBIN,INDIRECT 0.7 mg/dL (0.0-2.0); BILIRUBIN,TOTAL 1.8 mg/dL (0.2-1.0); TOTAL PROTEIN 8.7 g/dL (6.4-8.2)
[2020-06-06] MEDS: SODIUM BICARBONATE 8.4% 150 MEQ in DEXTROSE 5% 1,000 ML IV SCH ×2 (13:28→18:40)
[2020-06-06] MEDS ORDERED: WARFARIN 3 MG TABLET PO-COUM ONE (18:00)
== END 2020-06-07 02:21 | disposition expired | DRG 720 ==
LOC: ED 01:34 → EDIP 02:10 → CCU 03:36
PROVIDERS: ADMIT Family Medicine; ATTEND Hospitalist
PROC: 5A1955Z Respiratory Ventilation, Greater than 96 Consecutive Hours (ICD-10-PCS; principal; 2020-05-28)
PROC: 0BH17EZ Insertion of Endotracheal Airway into Trachea, Via Natural or Artificial Opening (ICD-10-PCS; 2020-05-28)
PROC: 5A09357 Assistance with Respiratory Ventilation, Less than 24 Consecutive Hours, Continuous Positive Airway Pressure (ICD-10-PCS; 2020-05-28)
PROC: 0T9B70Z Drainage of Bladder with Drainage Device, Via Natural or Artificial Opening (ICD-10-PCS; 2020-05-28)
PROC: 02HV33Z Insertion of Infusion Device into Superior Vena Cava, Percutaneous Approach (ICD-10-PCS; 2020-06-01)
PROC: B548ZZA Ultrasonography of Superior Vena Cava, Guidance (ICD-10-PCS; 2020-06-01)
DX: A41.9 Sepsis, unspecified organism (principal); C92.40 Acute promyelocytic leukemia, not having achieved remission; G93.41 Metabolic encephalopathy; I11.0 Hypertensive heart disease with heart failure; F12.90 Cannabis use, unspecified, uncomplicated; I25.2 Old myocardial infarction; I27.29 Other secondary pulmonary hypertension; I27.81 Cor pulmonale (chronic); I50.31 Acute diastolic (congestive) heart failure; I50.82 Biventricular heart failure; N17.0 Acute kidney failure with tubular necrosis; R65.20 Severe sepsis without septic shock; Z20.822 Contact with and (suspected) exposure to COVID-19; Z79.01 Long term (current) use of anticoagulants; Z86.711 Personal history of pulmonary embolism; Z86.718 Personal history of other venous thrombosis and embolism; Z87.891 Personal history of nicotine dependence; Z91.14 Patient's other noncompliance with medication regimen; K75.89 Other specified inflammatory liver diseases; J98.11 Atelectasis; J96.01 Acute respiratory failure with hypoxia; D68.61 Antiphospholipid syndrome; D69.3 Immune thrombocytopenic purpura; D75.89 Other specified diseases of blood and blood-forming organs; E16.2 Hypoglycemia, unspecified; I07.1 Rheumatic tricuspid insufficiency; J18.9 Pneumonia, unspecified organism
CPT/HCPCS: 31500; 36415; 36573; 36600; 51702; 70486; 71045; 71250; 71275; 74176; 76705; 80048; 80053; 80076; 80202; 81001; 82803; 82962; 83605; 83735; 83880; 84100; 84145; 84478; 84484; 85025; 85384; 85610; 87040; 87070; 87081; 87086; 87147; 87205; 93005; 94002; 94003; 99291; G0378; J0171; J1569; J1815; J1940; J2185; J2248; J2250; J2405; J2543; J2704; J3010; J3370; J7070; Q9967; C1751; J0330; J7030; J7040; J7050; J7120; U0003